=== PATIENT | male | born 1965 | race American Indian/Alaskan Native ===

== ENCOUNTER 2016-11-15 08:01 | Emergency (ER) | payer OTHER ==
[2016-11-15 08:16] VITALS: BP 137/99
--- NOTE | 2016-11-15 08:46 | EDM.PDOC ---
ED HPI GENERAL MEDICAL PROBLEM - General Chief Complaint: Behavioral/Psych Stated Complaint: CANT SLEEP Time Seen by Provider: 11/15/16 08:35 - History of Present Illness INITIAL COMMENTS - FREE TEXT/NARRATIVE: 50-year-old male presents to the emergency room for sleeping difficulties. The patient has chronic pain issues and used to be on OxyContin 40 mg twice a day. He ran out a couple of weeks ago. Since that time he's been drinking to control the pain over the last several days he's had difficulty sleeping at night. He has a prescription for Ativan but has been reluctant to use this while drinking. Patient has a complicated medical history he is on Humira for psoriasis. He is 8 years post gastric bypass surgery. In general he is somebody that should not be drinking. I had a long discussion with the patient regarding this. 4 nights ago the patient stubbed his right great toe. It is bruised up however he is moving it okay. Lower Back Pain Score (Numeric/FACES): 8 - Related Data Allergies Allergy/AdvReac Type Severity Reaction Status Date / Time No Known Allergies Allergy Verified 11/15/16 08:08 Home Meds: Home Meds Gemfibrozil 600 mg PO BID 03/27/14 [History] hydrOXYzine HCl [hydrOXYzine] 25 mg PO Q48H 03/29/14 [History] Atenolol 100 mg PO DAILY #30 03/31/14 [Rx] Multivitamin [Multivitamins] 1 tab PO DAILY 04/25/15 [History] Hydrocodone/Acetaminophen [Hydrocodon-Acetaminophn 10-325] 10 - 325 mg PO BID [History] LORazepam [Ativan] 0.5 mg PO Q6H PRN #5 tablet 09/30/15 [Rx] Telmisartan [Micardis] 0 mg PO DAILY 09/30/15 [History] Past Medical History Cardiovascular History: Reports: High cholesterol, Hypertension Gastrointestinal History: Reports: Other (see below) Other Gastrointestinal History: gastric bypass Musculoskeletal History: Reports: Back pain, chronic Neurological History: Reports: Neuropathy, peripheral Psychiatric History: Reports: Addiction, Anxiety, Depression Endocrine/Metabolic History: Reports: Diabetes, type II Social & Family History - Tobacco Use Smoking Status *Q: Former Smoker Years of Tobacco use: 20 Packs/Tins Daily: 0.5 Used Tobacco, but Quit: Yes Month Tobacco Last Used: october Second Hand Smoke Exposure: No - Caffeine Use Caffeine Use: Reports: None - Alcohol Use Days Per Week of Alcohol Use: 0 - Recreational Drug Use Recreational Drug Use: No ED ROS GENERAL - Review of Systems Review Of Systems: See Below Constitutional: Reports: no symptoms HEENT: Reports: No symptoms Respiratory: Reports: No Symptoms Cardiovascular: Reports: No symptoms GI/Abdominal: Reports: No symptoms : Reports: no symptoms Neurological: Reports: No Symptoms ED EXAM, GENERAL - Physical Exam Exam: See Below Exam Limited By: No limitations General Appearance: alert, no apparent distress, other (Patient smells of recent alcohol use) Head: atraumatic, normocephalic Neck: normal inspection, supple, non-tender, full range of motion Respiratory/Chest: no respiratory distress, lungs clear, normal breath sounds Cardiovascular: regular rate, rhythm, no edema, no murmur GI/Abdominal: normal bowel sounds, soft, non tender Extremities: no pedal edema, other (He has ecchymosis the distal portion of his left great toe with a small blood blister I would like to x-ray this the patient declined.) Neurological: alert, oriented Skin Exam: Warm, Dry, Intact Lymphatic: no adenopathy Course - Vital Signs Last Recorded V/S: Last Vital Signs Temp 37.7 C 11/15/16 08:10 Pulse 105 H 11/15/16 08:10 Resp 16 11/15/16 08:10 BP 137/99 H 11/15/16 08:10 Pulse Ox 99 11/15/16 08:10 - Re-Assessments/Exams Free Text/Narrative Re-Assessment/Exam: 11/15/16 09:08 Had a long discussion with the patient about alcoholism and how it can interfere with his normal sleep pattern he's post gastric bypass surgery and this imposes multiple complications with this he is on Humira and should not drink too much on this. Patient has a prescription for Ativan upper to mid he stopped drinking altogether and maybe start using his Ativan this evening as directed. Offered x-ray his right great toe he refused he does demonstrate good function of the toe however he has some underlying neuropathy and I am concerned about the appearance and a underlying fracture. He agrees to followup with his regular physician early this next week. The patient has been on OxyContin 40 mg twice a day by history that he was started on when he was down in the [facility] I've reviewed his discontinuation of this and it has been at least 2 weeks as well think is an insomnia is related to withdrawal he should be long over this. Departure - Departure Time of Disposition: 08:50 Disposition: Home, Self-Care 01 Clinical Impression: Insomnia, Alcohol abuse Instructions: Alcohol Use Disorder, Insomnia Referrals: PCP,None [Primary Care Provider] - Forms: ED Department Discharge Additional Instructions: Return to emergency room if any questions or problems. Stop drinking use your Ativan as directed. Followup he regular physician early this next week
== END 2016-11-15 09:11 | disposition home or self-care (01) ==
LOC: JD.ED 08:01
DX: G47.00 Insomnia, unspecified (principal); F10.10 Alcohol abuse, uncomplicated; S90.112A Contusion of left great toe without damage to nail, initial encounter; S90.422A Blister (nonthermal), left great toe, initial encounter; E78.00 Pure hypercholesterolemia, unspecified; I10 Essential (primary) hypertension; F41.9 Anxiety disorder, unspecified; F32.9 Major depressive disorder, single episode, unspecified; E11.9 Type 2 diabetes mellitus without complications; Z98.84 Bariatric surgery status; Z87.891 Personal history of nicotine dependence; Z79.899 Other long term (current) drug therapy; W22.8XXA Striking against or struck by other objects, initial encounter
CPT/HCPCS: 99282; 99283

== ENCOUNTER 2018-02-04 16:23 | Emergency (ER) | payer OTHER ==
[2018-02-04 16:47] VITALS: BP 143/105
[2018-02-04] MEDS ORDERED: Ondansetron 4 MG/2 ML SDV IVPUSH ONE (18:57)
[2018-02-04] MEDS ORDERED: Sodium Chloride 0.9% 1,000 ML IV SCH (19:00)
--- NOTE | 2018-02-04 19:02 | EDM.PDOCBH ---
ED HPI GENERAL MEDICAL PROBLEM - General Chief Complaint: Drug or Alcohol Abuse Stated Complaint: DETOX Time Seen by Provider: 02/04/18 18:24 Source of Information: Reports: Patient History Limitations: Reports: Intoxication (clinically mild) - History of Present Illness INITIAL COMMENTS - FREE TEXT/NARRATIVE: The patient states that he is a binge alcoholic, that he has been drinking daily for the past 3 to 3-1/2 weeks. Prior to that, he was sober for 2-3 months. He states he drank a fifth of vodka (a regular sized bottle) and 18 beers today. He states that his [place] koi is willing to send him to an alcohol rehabilitation facility in [place], but that he first needed to come here to "detox". He states that his last drink was just 15 minutes before coming to the ED. The patient currently reports that he has been feeling shaky, that his feet and legs hurt, that his heart is beating fast, for the past 2-3 hours, and that he has had nausea and emesis for the past 5 hours and watery diarrhea for the past 2 days. Please note, however, that the patient is diabetic, and that his legs and feet chronically hurt, due to diabetic neuropathy. Here in the ED, the patient is noted to be tachycardic at 128 bpm, but without significantly elevated blood pressure, tachypnea, or fever. He is not visibly shaking or physically agitated. The patient states that he started drinking around 16 years of age. He states that he has never been to inpatient or outpatient alcohol treatment. His only run-in with the law with respect drinking was an overnight stay in assisted for public intoxication. No DUIs. He states that he has been hospitalized due to his alcoholism about 10-15 times, but just for IV fluid, Ativan, and monitoring of his blood sugars (the patient is diabetic), never for DTs. The patient has never been endotracheally intubated, and has never required ICU admission. Reviewing the patient's past medical history, I note that he has a history of chronic back pain, and was previously on OxyContin 40 mg BID. When asked about this, the patient states that he is no longer taking OxyContin, that he gets the pills from a physician in the [facility], who is "the only one who is willing to prescribe them to me" The patient takes only metformin for his diabetes. The patient states that he last checked his blood sugar about 6 months to 1 year ago. The patient's PCP is Dr. Uriostegui from [facility], in [place], [place]. The patient states that he last saw him about 3 months ago. - Related Data Allergies Allergy/AdvReac Type Severity Reaction Status Date / Time No Known Allergies Allergy Verified 02/04/18 16:47 Home Meds: Home Meds Gemfibrozil 600 mg PO BID 03/27/14 [History] hydrOXYzine HCl [hydrOXYzine] 25 mg PO Q48H 03/29/14 [History] Atenolol 100 mg PO DAILY #30 03/31/14 [Rx] Multivitamin [Multivitamins] 1 tab PO DAILY 04/25/15 [History] Hydrocodone/Acetaminophen [Hydrocodon-Acetaminophn 10-325] 10 - 325 mg PO BID [History] LORazepam [Ativan] 0.5 mg PO Q6H PRN #5 tablet 09/30/15 [Rx] Telmisartan [Micardis] 0 mg PO DAILY 09/30/15 [History] Past Medical History Cardiovascular History: Reports: High Cholesterol, Hypertension Gastrointestinal History: Reports: GERD Genitourinary History: Reports: Renal Calculus Musculoskeletal History: Reports: Back Pain, Chronic, Gout (suspected) Neurological History: Reports: Neuropathy, Diabetic Psychiatric History: Reports: Addiction (Alcohol), Anxiety, Depression Endocrine/Metabolic History: Reports: Diabetes, Type II, Obesity/BMI 30+ Dermatologic History: Reports: Psoriasis (on Humira) - Past Surgical History HEENT Surgical History: Reports: Oral Surgery ([place] teeth extraction) GI Surgical History: Reports: Bariatric Procedure (gastric bypass 2009), Cholecystectomy (2002) Social & Family History - Tobacco Use Smoking Status *Q: Former Smoker Years of Tobacco use: 17 Packs/Tins Daily: 0.2 Month/Year Tobacco Last Used: Quit 2007 - Caffeine Use Caffeine Use: Reports: None - Alcohol Use Alcohol Use History: Yes Alcohol Use Frequency: Binges - Recreational Drug Use Recreational Drug Use: Yes Drug Use in Last 12 Months: No Recreational Drug Type: Reports: Amphetamines (Speed), Barbituates, Benzodiazepines, Cocaine, Marijuana/Hashish, Methamphetamine, Psilocybin ( Mushrooms), Other (see below) (Opioids) Recreational Drug Use Comment: States he tried "every drug", except heroin. Recent use of oxycontin, but stopped most drugs in 1994 - Living Situation & Occupation Living situation: Reports: Single, with Family (Mother) Occupation: Employed ([employer]) ED ROS GENERAL - Review of Systems Review Of Systems: ROS reveals no pertinent complaints other than HPI. ED EXAM, BEHAVIORAL HEALTH - Physical Exam Exam: See Below Exam Limited By: No Limitations General Appearance: Alert, WD/WN, No Apparent Distress Eye Exam: Bilateral Eye: EOMI, Normal Inspection Ears: Normal External Exam, Hearing Grossly Normal Nose: Normal Inspection, No Blood Throat/Mouth: Normal Inspection, Normal Lips, Normal Voice, No Airway Compromise Head: Atraumatic, Normocephalic Neck: Normal Inspection, Full Range of Motion Respiratory/Chest: No Respiratory Distress, Lungs Clear, Normal Breath Sounds, No Accessory Muscle Use Cardiovascular: Normal Peripheral Pulses, Regular Rate, Rhythm, No Gallop, No JVD, No Murmur, No Rub GI/Abdominal: Normal Bowel Sounds, Soft, Non-Tender, No Organomegaly, No Distention, No Abnormal Bruit, No Mass, Other (Obese) (Male) Exam: Deferred Rectal (Males) Exam: Deferred Back Exam: Normal Inspection, Full Range of Motion, NT Extremities: Normal Inspection, Normal Range of Motion, No Pedal Edema, Normal Capillary Refill Neurological: Alert, Normal Cognition (no slurred speech), No Motor/Sensory Deficits, Oriented x 3 Psychiatric: Normal Affect Skin Exam: Warm, Dry, Intact, Normal color, No rash. No: Diaphoretic EKG INTERPRETATION EKG Date: 02/04/18 Time: 19:57 Rhythm: Other (Sinus tachycardia) Rate (Beats/Min): 115 [place]: LAD-Left Mesick Deviation P-Wave: Present QRS: Normal ST-T: Normal QT: Normal Comparison: No Change (except for rate from 04/25/2015) COURSE, BEHAVIORAL HEALTH COMP - Course Vital Signs: Last Vital Signs Temp 36.2 C 02/04/18 16:44 Pulse 128 H 02/04/18 16:44 Resp 16 02/04/18 16:44 BP 143/105 H 02/04/18 16:44 Pulse Ox 98 02/04/18 16:44 Orthostatic Blood Pressure [ 127/98 Standing] Orthostatic Blood Pressure [ 141/100 Sitting] Orthostatic Blood Pressure [ 137/99 Supine] Orders, Labs, Meds: Laboratory Tests 02/04/18 02/04/18 02/04/18 Range/Units 19:09 19:10 19:10 WBC 4.29 (4.23-9.07) K/mm3 RBC 4.22 L (4.63-6.08) M/mm3 Hgb 12.7 L (13.7-17.5) gm/L Hct 37.5 L (40.1-51.0) % MCV 88.9 (79.0-92.2) fl MCH 30.1 (25.7-32.2) pg MCHC 33.9 (32.2-35.5) g/dl RDW Std Deviation 51.5 H (35.1-43.9) fL Plt Count 113 L (163-337) K/mm3 MPV 11.2 (9.4-12.3) fl Neutrophils % (Manual) 55 (40-60) % Band Neutrophils % 0 (0-10) % Lymphocytes % (Manual) 35 (20-40) % Atypical Lymphs % 0 % Monocytes % (Manual) 8 (2-10) % Eosinophils % (Manual) 1 (0.8-7.0) % Basophils % (Manual) 1 (0.2-1.2) Platelet Estimate Adequate Plt Morphology Comment Normal RBC Morph Comment Normal Sodium 133 L (136-145) mEq/L Potassium 3.6 (3.5-5.1) mEq/L Chloride 94 L (98-107) mEq/L Carbon Dioxide 19 L (21-32) mEq/L Anion Gap 23.6 H (5-15) BUN 6 L (7-18) mg/dL Creatinine 1.3 (0.7-1.3) mg/dL Est Cr Clr Drug Dosing 76.83 mL/min Estimated GFR (MDRD) 58 (>60) mL/min BUN/Creatinine Ratio 4.6 L (14-18) Glucose 327 H (74-106) mg/dL POC Glucose 304 H (70-105) mg/dL Calcium 8.5 (8.5-10.1) mg/dL Magnesium 2.1 (1.8-2.4) mg/dl Total Bilirubin 0.8 (0.2-1.0) mg/dL AST 164 H (15-37) U/L ALT 90 H (16-63) U/L Alkaline Phosphatase 161 H (46-116) U/L Total Protein 8.7 H (6.4-8.2) g/dl Albumin 3.8 (3.4-5.0) g/dl Globulin 4.9 gm/dL Albumin/Globulin Ratio 0.8 L (1-2) Urine Opiates Screen (NEGATIVE) Ur Buprenorphine Scrn (NEGATIVE) Ur Oxycodone Screen (NEGATIVE) Urine Methadone Screen (NEGATIVE) Ur Propoxyphene Screen (NEGATIVE) Ur Barbiturates Screen (NEGATIVE) Ur Tricyclics Screen (NEGATIVE) Ur Phencyclidine Scrn (NEGATIVE) Ur Amphetamine Screen (NEGATIVE) U Methamphetamines Scrn (NEGATIVE) U Benzodiazepines Scrn (NEGATIVE) U Cocaine Metab Screen (NEGATIVE) U Marijuana (THC) Screen (NEGATIVE) Ethyl Alcohol 0.29 (0.00) gm% 02/04/18 02/04/18 Range/Units 20:17 20:29 WBC (4.23-9.07) K/mm3 RBC (4.63-6.08) M/mm3 Hgb (13.7-17.5) gm/L Hct (40.1-51.0) % MCV (79.0-92.2) fl MCH (25.7-32.2) pg MCHC (32.2-35.5) g/dl RDW Std Deviation (35.1-43.9) fL Plt Count (163-337) K/mm3 MPV (9.4-12.3) fl Neutrophils % (Manual) (40-60) % Band Neutrophils % (0-10) % Lymphocytes % (Manual) (20-40) % Atypical Lymphs % % Monocytes % (Manual) (2-10) % Eosinophils % (Manual) (0.8-7.0) % Basophils % (Manual) (0.2-1.2) Platelet Estimate Plt Morphology Comment RBC Morph Comment Sodium (136-145) mEq/L Potassium (3.5-5.1) mEq/L Chloride (98-107) mEq/L Carbon Dioxide (21-32) mEq/L Anion Gap (5-15) BUN (7-18) mg/dL Creatinine (0.7-1.3) mg/dL Est Cr Clr Drug Dosing mL/min Estimated GFR (MDRD) (>60) mL/min BUN/Creatinine Ratio (14-18) Glucose (74-106) mg/dL POC Glucose 240 H (70-105) mg/dL Calcium (8.5-10.1) mg/dL Magnesium (1.8-2.4) mg/dl Total Bilirubin (0.2-1.0) mg/dL AST (15-37) U/L ALT (16-63) U/L Alkaline Phosphatase (46-116) U/L Total Protein (6.4-8.2) g/dl Albumin (3.4-5.0) g/dl Globulin gm/dL Albumin/Globulin Ratio (1-2) Urine Opiates Screen Negative (NEGATIVE) Ur Buprenorphine Scrn Negative (NEGATIVE) Ur Oxycodone Screen Negative (NEGATIVE) Urine Methadone Screen Negative (NEGATIVE) Ur Propoxyphene Screen Negative (NEGATIVE) Ur Barbiturates Screen Negative (NEGATIVE) Ur Tricyclics Screen Negative (NEGATIVE) Ur Phencyclidine Scrn Negative (NEGATIVE) Ur Amphetamine Screen Negative (NEGATIVE) U Methamphetamines Scrn Negative (NEGATIVE) U Benzodiazepines Scrn Negative (NEGATIVE) U Cocaine Metab Screen Negative (NEGATIVE) U Marijuana (THC) Screen Negative (NEGATIVE) Ethyl Alcohol (0.00) gm% Medications Discontinued Medications Generic Name Dose Route Start Last Admin Trade Name Judy PRN Reason Stop Dose Admin Sodium Chloride 1,000 mls @ 150 mls/hr 02/04/18 19:00 Normal Saline IV ASDIRECTED NI Sodium Chloride 1,000 mls @ 999 mls/hr 02/04/18 19:20 02/04/18 19:17 Normal Saline IV 02/04/18 20:20 999 mls/hr ONETIME ONE Administration Insulin Human Regular 7 unit 02/04/18 19:22 02/04/18 19:34 Humulin R SUBCUT 02/04/18 19:23 7 unit ONETIME STA Administration Ondansetron HCl 4 mg 02/04/18 18:57 02/04/18 19:18 Zofran IVPUSH 02/04/18 18:58 4 mg ONETIME ONE Administration Medical Clearance: 02/04/18 18:59 Patient presents for "detox", however, his last drink was just 15 minutes prior to arrival to the ED. Clinically, he is mildly intoxicated. While he states that he feels shaky, I do not see any physical shaking. He reports palpitations , and his heart rate is elevated at 128. He reports nausea and vomiting for the past 5 hours, and watery diarrhea for the past 2 days, which could be related to his drinking, but do not represent alcohol withdrawal symptoms, per se. His remaining complaint of his feet and legs hurting are related to his diabetic peripheral neuropathy, not alcohol withdrawal. While the patient would like to be admitted to the hospital to receive an anxiolytic, such as Ativan, at this point, I do not see that it is medically required. I have ordered a workup, including blood and urine, an ECG, and orthostatics, and will give the patient some IV fluid and Zofran. Based on those results, I will then determine if the patient would benefit from coming into the hospital or not. 02/04/18 19:20 The patient is orthostatic. I have switched the patient's IV fluid from NS at 150 mL/hr to 1 L bolus, then will recheck orthostatics. The patient's Accu-Chek is 304. I will order 7 units of regular insulin, then recheck his blood sugar in an hour. 02/04/18 20:34 After 1 L NS, the patient is no longer orthostatic. About one hour following 7 units of insulin, the patient's Accu-Chek is now 240. 02/04/18 20:43 I was on the phone, discussing the possibility of admission with Dr. Mckenzie, who actually agreed to admit the patient, when I was notified that the patient wants to go home. I discussed the patient's lab abnormalities with him. The patient states that he will be able to follow-up with his PCP, Dr. Uriostegui, tomorrow. In the meantime, I'm recommending that he stay well hydrated with either water or, better yet, low sugar Gatorade or Powerade. The patient stated that he would. He stated that his mother will come and pick him up. Departure - Departure Time of Disposition: 20:44 Disposition: Home, Self-Care 01 Condition: Good Clinical Impression: Alcohol intoxication, Alcohol dependence, binge pattern, High anion gap metabolic acidosis, Hyperglycemia due to type 2 diabetes mellitus, Orthostasis - Discharge Information *PRESCRIPTION DRUG MONITORING PROGRAM REVIEWED*: Not Applicable *COPY OF PRESCRIPTION DRUG MONITORING REPORT IN PATIENT VICKY: Not Applicable Instructions: What You Need to Know About Alcohol Abuse and Dependence, Adult Referrals: PCP,None [Primary Care Provider] - Roque Uriostegui DO [Consulting Physician] - Additional Instructions: You were seen in the emergency room seeking alcohol detoxification. Workup in the ER included blood work, Accu-Cheks, positional blood pressure checks, and an ECG. You were unable to provide a urine sample. Your workup found that your alcohol level is elevated at 0.29. For reference, the upper legal limit for driving is 0.08. Your workup also found that you have a metabolic acidosis, meaning, your blood is acidic. This is corrected with IV hydration. You were found to be intravascularly dry, corrected after you received 1 L of IV fluid. Your blood sugar was found to be elevated at 304, down to 240 after you received insulin. You have elected to go home. Stay well hydrated. Sugar-free Gatorade is best, but water is also good. Check your blood sugars frequently, and take your diabetes medications as prescribed. Follow-up with your PCP, Dr. Roque Uriostegui, tomorrow, 02/05/2018. If any other problems, please do not hesitate to return to the ER.
[2018-02-04] MEDS ORDERED: Sodium Chloride 0.9% 1,000 ML IV ONE (19:20)
[2018-02-04] MEDS ORDERED: Insulin Regular, Human 100 Units/ML 3 ML Vial SUBCUT STA (19:22)
== END 2018-02-04 20:53 | disposition home or self-care (01) ==
LOC: JD.ED 16:23
DX: F10.220 Alcohol dependence with intoxication, uncomplicated (principal); E87.2 Acidosis; E11.65 Type 2 diabetes mellitus with hyperglycemia; I95.1 Orthostatic hypotension; E11.42 Type 2 diabetes mellitus with diabetic polyneuropathy; Y90.8 Blood alcohol level of 240 mg/100 ml or more; Z79.899 Other long term (current) drug therapy
CPT/HCPCS: 36415; 80053; 80306; 82962; 83735; 85007; 85027; 93005; 96361; 96372; 96374; 99285; G0480; J1815; J2405; J7040; 93010; 99284-25

== ENCOUNTER 2021-08-24 16:43 | Emergency (ER) | payer OTHER ==
[2021-08-24 17:19] VITALS: BP 115/87; PULSE 98
[2021-08-24] MEDS ORDERED: Morphine 4 MG/ML Syringe IM ONE (17:46)
== END 2021-08-24 17:55 | disposition home or self-care (01) ==
LOC: JD.ED 16:43
DX: L03.312 Cellulitis of back [any part except buttock and flank] (principal); E78.00 Pure hypercholesterolemia, unspecified; I10 Essential (primary) hypertension; E11.9 Type 2 diabetes mellitus without complications; E66.9 Obesity, unspecified; Z68.33 Body mass index [BMI] 33.0-33.9, adult
CPT/HCPCS: 96372; 99283; J2270

== ENCOUNTER 2021-08-28 13:58 | Emergency (ER) | payer OTHER ==
[2021-08-28 14:10] VITALS: BP 138/102; PULSE 97
[2021-08-28] MEDS ORDERED: Lidocaine 1% with EPINEPHrine 1:100,000 10 ML MDV INJECT ONE (14:49)
[2021-08-28] MEDS ORDERED: Lidocaine/EPINEPHrine/Tetracaine Soln 1 ML TOP ONE (14:49)
[2021-08-28] MEDS ORDERED: Lidocaine 1% with EPINEPHrine 1:100,000 20 ML MDV ONE (15:18)
[2021-08-28] MEDS ORDERED: Lidocaine 1% with EPINEPHrine 1:100,000 20 ML MDV INJECT ONE (15:30)
== END 2021-08-28 17:11 | disposition home or self-care (01) ==
LOC: JD.ED 13:58
DX: L03.312 Cellulitis of back [any part except buttock and flank] (principal); L02.212 Cutaneous abscess of back [any part, except buttock and flank]; E78.00 Pure hypercholesterolemia, unspecified; I10 Essential (primary) hypertension; K21.9 Gastro-esophageal reflux disease without esophagitis; E11.40 Type 2 diabetes mellitus with diabetic neuropathy, unspecified; E66.9 Obesity, unspecified; Z68.33 Body mass index [BMI] 33.0-33.9, adult
CPT/HCPCS: 10060; 87070; 87075; 87077; 87186; 87205; 99283-25

== ENCOUNTER 2025-05-18 14:19 | Emergency (ER) | payer OTHER ==
[2025-05-18] MEDS: Acetaminophen/oxyCODONE 325-5 MG Tab PO ONE (15:13)
[2025-05-18] MEDS: Ketorolac 60 MG/2 ML SDV IM ONE (15:14)
[2025-05-18 15:51] VITALS: BP 148/76; PULSE 75
== END 2025-05-18 15:49 | disposition home or self-care (01) ==
LOC: JD.ED 14:19
DX: S22.41XA Multiple fractures of ribs, right side, initial encounter for closed fracture (principal); S20.211A Contusion of right front wall of thorax, initial encounter; S20.212A Contusion of left front wall of thorax, initial encounter; R91.1 Solitary pulmonary nodule; I10 Essential (primary) hypertension; E11.42 Type 2 diabetes mellitus with diabetic polyneuropathy; Z98.84 Bariatric surgery status; Z90.49 Acquired absence of other specified parts of digestive tract; Z79.899 Other long term (current) drug therapy; X58.XXXA Exposure to other specified factors, initial encounter
CPT/HCPCS: 71250; 96372; 99283; A9270; J1885